=== PATIENT | female | born 1935 | race Caucasian/White ===

== ENCOUNTER → 2016-08-28 | Outpatient (CLI) | payer MEDICARE, OTHER ==
[~2016-08-28] MED LIST: AMIODARONE HCL200 MG PO; ASPIRIN EC81 MG PO; CARDIZEM SR120 MG PO; DICYCLOMINE HCL20 MG PO; LEVOTHROID (S150 MCG PO; LIPITOR10 MG PO; LOSARTAN-HCTZ1 EAC1 PO; NORCO 5-325 MG1 TAB PO; NORVASC2.5 MG PO; PLAVIX75 MG PO; PRILOSEC40 MG PO; TAB-A-VITE1 EACH PO; ULTRAM50 MG PO
== END | disposition disaster alternative care site (69) ==
LOC: GRAD 14:29
DX: S59.902A Unspecified injury of left elbow, initial encounter (principal); X58.XXXA Exposure to other specified factors, initial encounter

== ENCOUNTER 2016-10-13 06:59 | Outpatient (CLI) | payer MEDICARE, OTHER ==
[~2016-10-13] VITALS: Ht 172.7 cm; Wt 65.9 kg
--- NOTE | ~2016-10-13 | CATH ---
Cardiac Diagnostic Report Demographics Patient Name GRIFFIN Coleman Gender Female Date of 1935 Age 81 year(s) Patient Number [id number] Date of Study 10/13/2016 Visit Number [id number] Room Number G63[address] [place] [id number] Ht 172.72 cm Wt 65.9 kg Referring Naseem Madison MD Primary Physician Physician Performing Naseem Madison MD Secondary Physician Physician Diagnostic Naseem Madison MD Assisting Physician Physician Interventional Physician Television Production Assistant Physician Findings and Conclusions Diagnostic Findings and Conclusion Non-obstructive CAD, Severe Aortic Stenosis Diagnostic Recommendations Referral for TAVR, manual pressure for hemostasis Procedure Description The patient was brought to the diagnostic cardiac catheterization-EP laboratory in the fasting, non-sedated state. Informed consent was obtained in the written and verbal form after the risks and benefits were explained. The patient had no further questions and agreed to proceed. The planned puncture-incision site(s) were shaved and prepped with ChloraPrep and draped in the usual sterile manner. Conscious sedation, supplemental oxygen, and pain control medications were delivered by a registered nurse under physician guidance. Surface ECG rhythm, blood pressure measurement, and pulse oximetry were monitored throughout the procedure. Arterial access. The access site was infiltrated with lidocaine. The vessel was entered with the Seldinger technique. A sheath was advanced into the vessel and used for catheter placement. Venous access. The access site was infiltrated with 2% lidocaine. The vessel was entered with the Seldinger technique. A sheath was advanced into the vessel and used for catheter placement. Right heart catheterization. A Perry Dulce catheter was successfully advanced to the right atrium, right ventricle, pulmonary artery, and pulmonary artery wedge position under fluoroscopic guidance. Resting hemodynamics were obtained. Measurements included pressures, arterial and venous oxygen saturation samples, and cardiac output. The Perry was removed without difficulty. Selective left coronary angiography. A catheter was advanced into the left coronary vessel ostium under Fluoroscopic guidance. Contrast was injected by hand. Images were obtained in multiple projections. Selective right coronary angiography. A catheter was advanced into the right coronary vessel ostium under fluoroscopic guidance. Contrast was injected by hand. Images were obtained in multiple projections. Arterial and Venous hemostasis was achieved. The patient was transferred to a regular nursing floor via cart accompanied by a nurse. The patient left the laboratory in stable condition. Procedure Procedure Type Diagnostic procedure:Angiography:, Right and Left Heart Cath Indications: Aortic stenosis. The procedure was explained in detail to the patient. Risks, complications and alternative treatments were reviewed. Written consent was obtained. Medications Reviewed with Patient prior to Procedure. Angiographic Findings Dominance: Mixed Cardiac Arteries and Lesion Findings LMCA: Normal (0% Stenosis).medium LAD: Normal (0% Stenosis).medium prox and med LCx: Abnormal.Co-dominant medium mild plaque OM1 small ok RCA: Normal (0% Stenosis).Co-dominant, large normal PL and PDA medium normal Procedure Data Procedure Date Date: 10/13/2016Start: 09:12 AMEnd: 10:26 AM Entry Locations - Retrograde Percutaneous access was performed through the Right Femoral artery (Primary location). A 6 Fr sheath was inserted. - Antegrade Percutaneous access was performed through the Right Femoral vein. A 7 Fr sheath was inserted. Procedure Medications Order and Administration + + + +-------+ !Time !Medication !Dosage !Route ! + + + +-------+ !10/13/2016 09:31 AM !Versed !1 mg !I.V. ! + + + +-------+ !10/13/2016 09:31 AM !Fentanyl !25 mcg !I.V. ! + + + +-------+ !10/13/2016 09:36 AM !Oxygen !2 l/min !NC ! + + + +-------+ Devices Used - A6 Fr. BS Angled Pigtail Diag. Catheterwas used for:LV Pressures.Unable to cannulate the vessel. - A6 Fr. BS JL 4 Diag. Catheterwas used for:Left coronary angiography. - A6 Fr. BS JR 4 Diag. Catheterwas used for:Right coronary angiography. - A6 Fr. JJ 3DRC Diag. Catheterwas used for:Right coronary angiography. Contrast Material - Isovue [id number] ml Fluoroscopy Time: Diagnostic: 19:18 minutes. Total: 19:18 minutes. Fluoroscopy Dose: Diagnostic: 769 mGy. Total: 769 mGy. Estimated Blood Loss: 5 ml. Medical History Allergies - Penicillin. - Morphine. Risk Factors The patient risk factors include:cerebrovascular disease, hypertension and Current/Recent(w/in 1 year) tobacco use. Admission Data Admission Date: 10/13/2016 Admission Time: 06:59 AM Insurance Payors: Medicare. Admission Medications + +------+------+ + + + + !Medication !Dosage!Times !Last !Last !Administered !Comments ! ! ! !Per !Delivery !Delivery ! ! ! ! ! !Day !Date !Time ! ! ! + +------+------+ + + + + !Clopidogrel! ! !10/13/2016 !12:00 AM !Yes ! ! + +------+------+ + + + + !Aspirin ! ! !10/13/2016 !12:00 AM !Yes ! ! !(any) ! ! ! ! ! ! ! + +------+------+ + + + + !Statin ! ! !10/13/2016 !12:00 AM !Yes ! ! !(any) ! ! ! ! ! ! ! + +------+------+ + + + + Clinical Evaluation Leading to Procedure Hemodynamics Condition: Rest O2 Consumption: Estimated: 148.80Heart Rate: 54 bpm Oxygen Saturation +--------+-----+----+ +----+ + !Location!pCO2 !pO2 !% Saturation !Hgb !O2 Content ! +--------+-----+----+ +----+ + !SVC ! ! !56.9 !11.9! ! +--------+-----+----+ +----+ + !RA ! ! !63.5 !11.9! ! +--------+-----+----+ +----+ + !PA ! ! !62.7 !11.9! ! +--------+-----+----+ +----+ + !AO ! ! !97 !11.9! ! +--------+-----+----+ +----+ + !IVC ! ! !69.3 !11.9! ! +--------+-----+----+ +----+ + Pressures (mmHg) +-----+ + !Site !Pressure ! +-----+ + !RA !7/ (2) ! +-----+ + !RV !25/-2 ,4 ! +-----+ + !PCW !03/04 (7) ! +-----+ + !PA !24/5 (14) ! +-----+ + !FA !127/49 (77) ! +-----+ + !AO !118/41 (67) ! +-----+ + Cardiac Output + + +------+ !Time !Cardiac Output (l/min) !Use ! + + +------+ !10/13/2016 09:53 AM !3.67 !False ! + + +------+ !10/13/2016 09:53 AM !4.07 !True ! + + +------+ !10/13/2016 09:54 AM !4.42 !False ! + + +------+ !10/13/2016 09:54 AM !3.96 !True ! + + +------+ !10/13/2016 09:55 AM !4.3 !True ! + + +------+ Cardiac Output +-------+ + + + !Method !CO (l/min) !CI (l/min/m2) !SV (ml) ! +-------+ + + + !Clifford !2.68 !1.5 !49.2 ! +-------+ + + + !Thermal!4.11 !2.3 !75.18 ! +-------+ + + + Shunts Oxygen Values O2 Consumption 148.8 Flows (l/min) Qs 2.48 Qe/Qp 0.93 Qp 2.68 Qp/Qs 1.08 Qe 2.48 Vascular Resistance (dynes x sec x cm-5) + +-----+-----+----+----+---------+-------+ !CO method !TSVR !SVR !TPVR!PVR !TPVR/TSVR!PVR/SVR! + +-----+-----+----+----+---------+-------+ !Clifford !25.14!24.25!5.13!2.4 !0.2 !0.1 ! + +-----+-----+----+----+---------+-------+ !Thermal !16.39!15.82!3.35!1.57!0.2 !0.1 ! + +-----+-----+----+----+---------+-------+ !Qp or Qs !27.17!26.21!5.13!2.4 !0.19 !0.09 ! + +-----+-----+----+----+---------+-------+ Discharge Data Discharge Date: 10/13/2016 Hospital Status: Outpatient Signatures dtt: [place] (cardio) dtd: 10/13/16 0912 Physician Self Edit
[~2016-10-13 06:59] MED LIST changes: -NORVASC2.5 MG PO
[2016-10-24] MEDS ORDERED: NORVASC2.5 MG PO (15:17)
== END 2016-10-13 14:12 | disposition disaster alternative care site (69) ==
LOC: GPCU 06:59 → GPOC 06:59
PROC: 4A023N7 Measurement of Cardiac Sampling and Pressure, Left Heart, Percutaneous Approach (ICD-10-PCS; principal; 2016-10-13)
PROC: B216YZZ Fluoroscopy of Right and Left Heart using Other Contrast (ICD-10-PCS; 2016-10-13)
DX: I35.0 Nonrheumatic aortic (valve) stenosis (principal)
CPT/HCPCS: J1644; J2001; J2250; J3010; J7030; J7060

== ENCOUNTER → 2016-10-24 | Day surgery (SDC) | payer MEDICARE, OTHER ==
[~2016-10-24] VITALS: Ht 172.7 cm; Wt 67.2 kg
[~2016-10-24] MED LIST changes: +NORVASC2.5 MG PO
--- NOTE | ~2016-10-24 | ECHO ---
Transesophageal Echocardiography Report (RUFINO) Demographics Patient Name ELENA MOYA Date of Study 10/24/2016 Patient Number [id number] Visit Number [id number] Date of 1935 Room Number Gender Female Number Age 81 year(s) Referring Jaquan Chavez MD Thumb Sewer Angela Ruiz RVT Physician Adriana Savage MD Physician Interpreting Adriana Savage Sewer Head Physician MD Supervising Ordering Adriana Savage MD/MLP Physician MD Nurse Stress Culled Fruit Packer Conclusions Summary Normal LV/RV size and systolic function. Estimated LVEF is 60%. There is severe aortic stenosis. Mild to moderate AI. The aortic root appears mildly dilated. The maximum diameter measures 4.2 cm. Mild to moderate TR. Procedure Type of Study RUFINO procedure Procedure Date Date: 10/24/2016 Start: 11:07 AM Study Location: Inpatient Portable Technical Quality: Adequate visualization Indications:Aortic stenosis. Appropriate Use Criteria: 9 Patient Status: Routine HR: 76 bpm BP: 133/62 mmHg Allergies - Penicillin. - Morphine. Findings Left Atrium The left atrium is moderately dilated. There is no thrombus in the left atrial appendage. There is no evidence of patent foramen ovale or atrial septal defect by color Doppler. Mitral Valve Mild degenerative changes of the MV. Mild MR. Aortic Valve There is severe aortic stenosis. Mild to moderate AI. Tricuspid Valve Mild to moderate TR. Miscellaneous The aortic root appears mildly dilated. The maximum diameter measures 4.2 cm. LVOT 1.9 cms. The patient was brought to the [facility] lab in the fasting state after informed consent was obtained in the written and verbal format. Bite block was placed by va. Once adequate anesthesia was obtained with anesthesia guidance with propofol sedation the RUFINO probe was placed by me down into the stomach. It was pulled back slightly after a few views were obtained in the transgastric level to the transesophageal position where the majority of the case was carried out. At the end of the case the probe was rotated and withdrawn. Patient tolerated the procedure well. Contractility Score LV regional wall motion:(0-Non visualized 1-Normal 2-Hypokinesis 3-Akinesis 4-Dyskinesis 5-Aneurysm) Signature Electronically signed by Adrinaa Savage MD([facility] physician) on 10/28/2016 11:24 AM dtt: MARQUITA RODRIGUEZ dtd: 10/24/16 1107 Physician Self Edit
[2016-10-24 10:04] LABS: ANION GAP 10.8 (10.0-19.0); CALCIUM 8.7 mg/dL (8.5-10.5); CREATININE 1.2 mg/dL (0.5-1.1); POTASSIUM 3.8 mMol/L (3.7-5.1)
== END ==
LOC: GOPD 10-23 → GSDC 09:21 → GOPD 10:00 → EDSTATUS 10:00
PROVIDERS: Internal Medicine Interventional Cardiology
DX: I35.2 Nonrheumatic aortic (valve) stenosis with insufficiency (principal); I36.1 Nonrheumatic tricuspid (valve) insufficiency; I48.0 Paroxysmal atrial fibrillation; I47.1 Supraventricular tachycardia; I65.29 Occlusion and stenosis of unspecified carotid artery; I12.9 Hypertensive chronic kidney disease with stage 1 through stage 4 chronic kidney disease, or unspecified chronic kidney disease; N18.9 Chronic kidney disease, unspecified; E78.5 Hyperlipidemia, unspecified; E03.9 Hypothyroidism, unspecified; Z79.82 Long term (current) use of aspirin; Z79.899 Other long term (current) drug therapy; Z88.0 Allergy status to penicillin; Z88.5 Allergy status to narcotic agent
CPT/HCPCS: J2001; J7030; Q9967